=== PATIENT | female | born 1990 | race Caucasian/White ===

== ENCOUNTER 2018-03-04 12:21 | Emergency (ER) | payer BC ==
[2018-03-04] MEDS ORDERED: DEXAMETHASONE SOD PHOSPHATE 10MG/ML VIAL PO ONE (13:13)
--- NOTE | 2018-03-04 13:13 | Emergency Department Record ---
History of Present Illness - General Chief Complaint: Cough Stated Complaint: COUGH, UPPER RESPIRATORY Time Seen by Provider: 03/04/18 13:04 Source: Patient Mode of Arrival: Ambulatory Limitations: No limitations - History of Present Illness Initial Comments: 27 yo female presents with cough, congestion, sore throat for 2 days. No vomiting or diarrhea. She has mild headaches from congestion. The cough is non productive. At times she feels like she is wheezing. She is a non smoker. She has underlying MS. She works as a labor and advanced seal delivery system. Complaint: Cough Onset/Timin -: Days(s) Quality: Other Consistency: Intermittent Improves With: Nothing Worsens With: Other (coughing) Associated Symptoms: Cough Treatments Prior to Arrival: None - Related Data Home Medications Medication Instructions Recorded Confirmed Last Taken Cholecalciferol (Vitamin D3) 5,000 unit PO DAILY 03/04/18 03/04/18 Unknown [Vitamin D3] Cholecalciferol (Vitamin D3) 50,000 unit PO WEEKLY 03/04/18 03/04/18 Unknown [Vitamin D] Metoclopramide HCl [Reglan] 10 mg PO ASDIR 03/04/18 03/04/18 Unknown Ocrelizumab [Ocrevus] 300 mg IV ASDIR 03/04/18 03/04/18 Unknown Ondansetron [Zofran Odt] 4 mg PO Q8H 03/04/18 03/04/18 Unknown Sumatriptan Succinate [Imitrex] 25 mg PO ASDIR 03/04/18 03/04/18 Unknown Allergies Allergy/AdvReac Type Severity Reaction Status Date / Time azithromycin [From Zithromax] AdvReac stomach Verified 03/04/18 13:04 issues glatiramer (copolymer 1) AdvReac shakiness Verified 03/04/18 13:04 [From Copaxone] gluten AdvReac stomach Verified 03/04/18 13:04 issues Travel Screening - Travel/Exposure Within Last 30 Days Have you traveled within the last 30 days?: No Review of Systems Constitutional: Reports: Fever (subjective) Eyes: Denies: Eye discharge, Eye pain, Photophobia, Vision change ENT: Reports: Congestion Respiratory: Reports: Cough, Wheezes Cardiovascular: Denies: Chest pain, Syncope Endocrine: Denies: Fatigue Gastrointestinal: Denies: Abdominal pain, Diarrhea, Nausea, Vomiting Genitourinary: Denies: Dysuria, Urgency Musculoskeletal: Denies: Arthralgia, Back pain, Myalgia Skin: Denies: Bruising, Change in color, Rash Neurological: Reports: Headache Psychiatric: Denies: Anxiety Hematological/Lymphatic: Denies: Easy bleeding, Easy bruising, Swollen glands Past Medical History - SOCIAL HISTORY Smoking Status: Never smoker Alcohol Use: Occasional Drug Use: None - RESPIRATORY Hx Respiratory Disorders: No - CARDIOVASCULAR Hx Cardio Disorders: No - NEURO Hx Neuro Disorders: Yes Hx Headaches: Yes - GI Hx GI Disorders: No - Hx Genitourinary Disorders: Yes Comment:: pyelonephritis - ENDOCRINE Hx Endocrine Disorders: Yes Hx Thyroid Disease: (ohhimotos) - MUSCULOSKELETAL Hx Musculoskeletal Disorders: Yes Comment:: MS - PSYCH Hx Psych Problems: Yes Hx Anxiety: Yes Hx Depression: Yes - HEMATOLOGY/ONCOLOGY Hx Hematology/Oncology Disorders: Yes Hx Blood Disorders: (lori gustafson) Family Medical History Any Significant Family History?: No Physical Exam - General General Appearance: Alert, Oriented x3, Cooperative, No acute distress Limitations: No limitations - Head Head exam: Atraumatic, Normal inspection - Eye Eye exam: Normal appearance. negative: Conjunctival injection - ENT ENT exam: Normal exam, Mucous membranes moist Ear exam: Normal external inspection Nasal Exam: Discharge (clear). negative: Dried blood Mouth exam: Normal external inspection Throat exam: Normal inspection. negative: Tonsillar erythema, Tonsillomegaly, Tonsillar exudate, R peritonsillar mass, L peritonsillar mass - Neck Neck exam: Normal inspection. negative: Lymphadenopathy - Respiratory Respiratory exam: Normal lung sounds bilaterally, Other (Clear lungs non labored , no current wheeze). negative: Accessory muscle use, Decreased breath sounds, Prolonged expiratory, Respiratory distress, Rhonchi, Stridor, Wheezes - Cardiovascular Cardiovascular Exam: Normal rhythm, Tachycardia - Rectal Rectal exam: Deferred - exam: Deferred - Extremities Extremities exam: Normal inspection - Neurological Neurological exam: Alert, Oriented X3 - Psychiatric Psychiatric exam: Normal affect, Normal mood - Skin Skin exam: Dry, Intact, Normal color, Warm Course Vital Signs 03/04/18 12:58 Temperature 98.8 F Pulse Rate 123 H Respiratory 18 Rate Blood Pressure 126/86 Pulse Ox 97 - Reevaluation(s) Reevaluation #1: 03/04/18 13:37 Influenza negative She is eating, drinking, no vomiting, no hypoxia or shortness of breath Clinically she has a mild viral URI. She is a nurse on labor and delivery. I recommend she not work the next 2 days on this type of unit with new born infants and expectant mothers. Disposition Disposition: Discharge Clinical Impression: Upper respiratory infection, viral Disposition: Home, Self-Care Condition: (1) Good Instructions: Cold Symptoms (ED) Additional Instructions: Off work the next two days Return for a recheck if worse or any new concerns See your doctor next with if any concerns continue Rest and stay well hydrated Forms: Patient Portal Access Time of Disposition: 13:39 Quality - Quality Measures Quality Measures: N/A - Blood Pressure Screening Does Patient Have Any of the Following: No Blood Pressure Classification: Pre-Hypertensive BP Reading Systolic Measurement: 126 Diastolic Measurement: 86 Screening for High Blood Pressure: < Pre-Hypertensive BP, F/U Documented > [ [id number]] Pre-Hypertensive Follow-up Interventions: Referral to alternative/primary care provider.
[2018-03-04 13:35] LABS: INFLUENZA A NEGATIVE (NEGATIVE); INFLUENZA B NEGATIVE (NEGATIVE)
== END 2018-03-04 13:48 | disposition home or self-care (01) ==
LOC: ER 12:21
DX: J06.9 Acute upper respiratory infection, unspecified (principal); R05 Cough
CPT/HCPCS: 87400; J1100; 99282